=== PATIENT | female | born 1955 | race Caucasian/White ===

== ENCOUNTER → 2017-02-11 | Day surgery (SDC) | payer OTHER ==
[~2017-02-11] VITALS: Ht 157.5 cm; Wt 58.9 kg
[~2017-02-11] MED LIST: ACID1TAB2 PO; ALBU8.5H2 INHALATION; AZEL50FO TP; BECL8.7A6 INHALATION; CALC-140 PO; ECON15CR10 TOP; ESTR1TAB24 PO; FLUT12AE10 IH; FLUT9.9S NS; LISI10TA PO; LORA0.5T PO; MULT-1018 PO; OLP.1OP5 OD; OMEG500C PO; OMEP40CA36 PO; PRE625 PO; PROG100C3 PO; Sodium Chloride LOK Flush 10 mL Syringe IV PRN; TAZA30CR TP; VALA500T2 PO; fentaNYL-PF 50 mCg/mL 2 mL Inj IVPUSH PRN
[2017-02-11 07:45] VITALS: BP 118/68; PULSE 62; RESP 16; O2SAT 100
[2017-02-11] MEDS: 0.9% Sodium Chloride 1,000 ML IV SCH ×2 (08:27→08:35)
--- NOTE | 2017-02-11 08:41 | PCM.ENDEGD ---
EGD Date of Service: Feb 11, 2017 Physician Marco Antonio Lassiter MD Pre Procedure Diagnosis: EOE Post Procedure Dx & Findings: EOE Procedure Esophagogastroduodenoscopy PROCEDURE IN DETAIL: After proper sedation, Olympus video endoscope was inserted into patient's mouth and esophagus was successfully intubated. Scope introduced esophagus. Esophagus showed normal shiny whitish mucosa consistent with squamous cell component. Z line was intact at 40 cm from the incisors. There was some scarring, mildly narrowing the lumen. However the lumen itself was wide open. Biopsies were done at the GE junction at the scarring and midesophagus. Scope further advanced to the stomach. Stomach showed normal shiny mucosa with normal appearing rugae folds without any ulcer mass erosion. Cardia fundus body antrum pylorus were all visualized. Retroflexion was done. Stomach was easily inflated and deflatable using air. Scope further advanced to the distal duodenum. Duodenum revealed normal villous structures with normal appearing folds without any mass ulcer erosion. Impression History of EOE Schatzki's ring wide open Recommendation Continue PPI Presedation Assessment Risks and Benefits Informed consent was obtained from the patient after all risks and benefits including but not limited to drug reaction, infection, pain, bleeding, perforation, as well as alternatives were discussed. Patient monitoring Continuous pulse oximetry, cardiac monitoring, blood pressure monitoring, IV access, and oxygen at 2L per nasal cannula. Periprocedural Fentanyl: Fentanyl 125mcg Incrementally Midazolam: Midazolam 6mg Incrementally Complications There were no periprocedural complications identified. Post Procedure Plan Post Procedure Recommendations 1. Restrict activities today. 2. Resume normal activities in the morning. 3. Resume medications. 4. GERD behavioral modification: - Avoid fatty, acidic, spicy, large meals - Do not lie down after meals - Do not eat or drink anything for at least 2 1/2 hours before going to bed at night - Discontinue tobacco and alcohol - Decrease or avoid caffeine - Avoid chocolate and mints - Decrease weight - Avoid aspirin and non steroidal anti-inflammatory agents (NSAID) such as Aleve, Advil, Mobic, Naproxen, Ibuprofen, etc 5. Add proton pump inhibitor. Take 30 minutes before 1st meal of the day. 6. Patient informed of normal post procedure side effects as bloating, drowsiness, blood streaking in the stool 7. If gastric biopsy reveal H.pylori, continue with appropriate treatment 8. If small bowel biopsy reveals celiac, continue with appropriate treatment 9. Please don't hesitate to call me with any questions Marco Antonio Lassiter MD Feb 11, 2017 08:41
[2017-02-11 08:42] VITALS: BP 109/56; PULSE 65; RESP 16; O2SAT 100
--- NOTE | 2017-02-11 08:42 | PCM.ENDCOL ---
Colonoscopy Date of Service: Feb 11, 2017 Physician Marco Antonio Lassiter MD Pre Procedure Diagnosis: Screening Post Procedure Dx & Findings: Polyp hemorrhoids diverticuli Procedure Colonoscopy PROCEDURE IN DETAIL: Prep adequate Withdrawal time 11 minutes After unremarkable rectal examination the Olympus video colonoscope was inserted patient's anal canal and was advanced to cecum. Landmarks were identified including the ileocecal valve and appendiceal orifice. Scope was withdrawn systematically. Visualized colonic mucosa showed healthy shiny mucosa with normal healthy-appearing vasculature. In the cecum, there was a 1 mm polyp which was removed completely using cold forceps. Patient had diverticuli throughout the entire colon including the cecum. Size of diverticuli were about small to medium size. There were mostly in the sigmoid colon. In the rectum retroflexion was done which showed hemorrhoids. Anal canal was inspected carefully on the way out and hemorrhoids noted. Impression Polyp 1 status post complete removal Diverticuli Hemorrhoids Recommendation Repeat colonoscopy in 5 years Diverticular diet Presedation Assessment Risks and Benefits Informed consent was obtained from the patient after all risks and benefits including but not limited to drug reaction, infection, pain, bleeding, perforation, as well as alternatives were discussed. Patient monitoring Continuous pulse oximetry, cardiac monitoring, blood pressure monitoring, IV access, and oxygen at 2L per nasal cannula. Complications There were no periprocedural complications identified. Post Procedure Plan Post Procedure Recommendations 1. Restrict activities today. 2. Resume normal activities in the morning. 3. Resume medications. 4. Patient informed of normal post procedure side effects as bloating, drowsiness, blood streaking in the stool. 5. average risk CRCS. If colon polyps come back as: -Hyperplastic- can repeat colonoscopy in 10 years -Tubular adenoma- repeat colonoscopy in 5 years -Tubulovillous/villous adenoma- repeat colonoscopy in 3 years -If any dysplasia- return to clinic as soon as possible 6. Please don't hesitate to call me with any questions. Marco Antonio Lassiter MD Feb 11, 2017 08:42
[2017-02-11 08:52] VITALS: BP 108/57; PULSE 54; RESP 16; O2SAT 100
[2017-02-11 09:02] VITALS: BP 108/58; PULSE 60; RESP 16; O2SAT 100
--- NOTE | 2017-02-16 06:57 | PATH ---
SURGICAL PATHOLOGY Attending Physician:Marco Antonio Lassiter M.D. CASE STATUS: Signed Out PATIENT NAME: ROSALINDA SEGOVIA PID: [id number] : 1955 DATE COLLECTED:02/11/2017 20:09 SPECIMEN: 1: Esophagus, Biopsy 2: Colon, Polyp CLINICAL HISTORY: 1). ESOPHAGUS BIOPSY 2). CECAL POLYP FINAL DIAGNOSIS: 1. Esophagus, Biopsy: Squamous and columnar mucosa with no diagnostic abnormality. Intraepithelial eosinophils are not increased. Negative for intestinal metaplasia. Negative for dysplasia or malignancy. 2. Cecum, Polyp, Biopsy: Colonic mucosa with no diagnostic abnormality consistent with polypoid redundancy. Negative for dysplasia or malignancy. ICD10: R13.10 GROSS DESCRIPTION: The specimen is received in two formalin filled containers labeled with the patient's name. 1). The specimen is labeled "esophagus" and consists of multiple portions of tissue which aggregate to 0.3 x 0.3 x 0.2 CM. The specimen is entirely submitted in cassette 1A. 2). The specimen is labeled "cecal polyp" and consists of a 0.3 x 0.2 x 0.1 CM portion of tissue which is entirely submitted in cassette 2A. 02/11/2017NM ICD-9 CODES: CPT CODES: 1: 53061 2: 63169 Electronically Signed Out Paris Tucker MD [facility] [address], [place] [address] Technical component performed at [facility], [address] [place] [address] [address], [address]
== END | disposition home or self-care (01) ==
LOC: END 00:46
PROVIDERS: ATTEND Internal Medicine
DX: Z12.11 Encounter for screening for malignant neoplasm of colon (principal); K63.5 Polyp of colon; K57.30 Diverticulosis of large intestine without perforation or abscess without bleeding; K64.8 Other hemorrhoids; K20.0 Eosinophilic esophagitis; K22.2 Esophageal obstruction; I10 Essential (primary) hypertension; J45.909 Unspecified asthma, uncomplicated; Z79.51 Long term (current) use of inhaled steroids
CPT/HCPCS: 43239; 45380; 99153; G0500; J2250; J3010; J7030